=== PATIENT | male | born 1935 | race Caucasian/White ===

== ENCOUNTER 2020-03-06 12:51 | Inpatient (IN) | payer MEDICARE ==
[~2020-03-06] VITALS: Ht 172.7 cm; Wt 62.4 kg
[2020-03-06] MEDS ORDERED: NORV5TAB PO (13:12)
[2020-03-06] MEDS ORDERED: FLOM0.4C39 PO (13:12)
[2020-03-06] MEDS ORDERED: CLOP75TA2 PO (13:12)
[2020-03-06] MEDS ORDERED: TOPR50TA PO (13:12)
[2020-03-06] MEDS ORDERED: ASPI325T57 PO (13:12)
[2020-03-06 13:54] LABS: BASO % 0.3 % (0.0-1.0); EOS # 0.1 10^3/uL (0.0-0.5); HEMATOCRIT 42.5 % (42.0-52.0); HEMOGLOBIN 13.9 g/dl (13.5-17.5); LYMPH % 24.1 % (24.0-44.0); MEAN CORPUSCULAR HEMOGLOBIN 30.6 pg (27.0-33.0); MEAN CORPUSCULAR HGB CONC 32.7 g/dl (32.0-36.5); MEAN CORPUSCULAR VOLUME 93.6 fl (80.0-96.0); MONO # 0.5 10^3/uL (0.0-0.8); MONO % 13.3 % (0.0-5.0); NEUTROPHILS # 2.4 10^3/uL (1.5-8.5); NEUTROPHILS % 59.5 % (36.0-66.0); PLATELET COUNT, AUTOMATED 134 10^3/uL (150-450); RED BLOOD COUNT 4.54 10^6/uL (4.30-6.10)
[2020-03-06 13:57] LABS: INR 1.08; PROTHROMBIN TIME 13.7 SECONDS (11.8-14.0)
[2020-03-06 13:58] LABS: PARTIAL THROMBOPLASTIN TIME 33.4 SECONDS (25.0-38.4)
[2020-03-06 14:15] LABS: ALBUMIN 3.7 GM/DL (3.2-5.2); ALT/SGPT 22 U/L (12-78); BILIRUBIN,DIRECT < 0.1 MG/DL (0.0-0.2); BILIRUBIN,TOTAL 0.3 MG/DL (0.2-1.0); BLOOD UREA NITROGEN 16 MG/DL (7-18); CALCIUM LEVEL 8.4 MG/DL (8.8-10.2); CARBON DIOXIDE LEVEL 27 MEQ/L (21-32); CHLORIDE LEVEL 106 MEQ/L (98-107); CK-MB VALUE MASS < 1.0 NG/ML (<3.6); CPK CREATINE PHOSPHOKINASE 45 U/L (39-308); CREATININE FOR GFR 1.14 MG/DL (0.70-1.30); GLOMERULAR FILTRATION RATE > 60.0 (>35); GLUCOSE, FASTING 76 MG/DL (70-100); MB/CK RELATIVE INDEX 2.22 (< OR =4); POTASSIUM SERUM 4.1 MEQ/L (3.5-5.1); SODIUM LEVEL 140 MEQ/L (136-145); TOTAL PROTEIN 7.6 GM/DL (6.4-8.2); TROPONIN I < 0.02 NG/ML (< 0.10)
--- NOTE | 2020-03-06 15:06 | HPEPDOC ---
General Date of Admission 03/06/20 Date of Service: Mar 06, 2020 Chief Complaint The patient is a 85-year-old male admitted with a reason for visit of Weakness/ Slowed Speech. Source: Patient Exam Limitations: No limitations Timing/Duration: 24 hours Severity: Mild Associated Symptoms: Weakness History of Present Illness Patient is 85 years old male with past medical history of hypertension, coronary artery diseases, triple bypass in 2019, 3 cardiac stents in 2005, CVA around 10 years ago presented hospital with generalized weakness. According to his daughter, patient developed slurred speech yesterday evening and difficulties in articulation, symptoms lasted for couple of hours. In the morning slurred speech resolved, patient was not confused. Patient didn't have any focal de ficiency or changes in sensitivities. Patient didn't have any headache. In the morning patient developed generalized weakness, unusual for him. In ER CT head was done and it was negative for acute ischemic stroke or bleeding. NIH score 0. EKG did not show any acute ischemic changes. Also patient was found to have hypertensive urgency with systolic blood pressure around 230 Home Medications Scheduled Amlodipine Besylate (Norvasc) 5 Mg Tablet, 5 MG PO DAILY, (Reported) Aspirin (Aspirin) 325 Mg Tablet, 325 MG PO DAILY, (Reported) Clopidogrel Bisulfate (Clopidogrel) 75 Mg Tablet, 75 MG PO DAILY, (Reported) Metoprolol Succinate (Toprol Xl) 50 Mg Tab.er.24h, 50 MG PO DAILY, (Reported) Tamsulosin HCl (Flomax) 0.4 Mg Capsule, 0.4 MG PO DAILY, (Reported) Allergies Coded Allergies: No Known Allergies (Unverified , 03/06/20) Past Medical History Medical History Triple bypass in 2019, coronary artery diseases with 3 stents placement, CVA salomón und 10 years ago, hypertension, BPH Surgical History Triple heart bypass Family History I personally reviewed family history and found not pertinent Social History * Smoker: Denies Alcohol: occationally Drugs: denies A-FIB/CHADSVASC A-FIB History Current/History of A-Fib/PAF?: No Current PO Anticoag Therapy: No Review of Systems Constitutional: Reports: Weakness; Denies: Chills Eyes: Denies: Pain, Vision change ENT: Denies: Head Aches Skin: Denies: Rash Pulmonary: Denies: Dyspnea, Cough Cardiovascular: Denies: Chest Pain Gastrointestinal: Denies: Nausea, Vomiting Genitourinary: Reports: Dysuria, Frequency Hematologic: Denies: Bruising Endocrine: Denies: Polydipsia Musculoskeletal: Denies: Neck Pain, Back Pain Neurological: Reports: Change in speech (slurred speech in the yesterday evening) Psych: Reports: Mood Normal Physical Examination General Exam: Positive: Alert, Cooperative Eye Exam: Positive: PERRLA ENT Exam: Positive: Atraumatic Neck Exam: Positive: Supple; Negative: JVD Chest Exam: Positive: Clear to auscultation Heart Exam: Positive: Rate Normal Telemetry: Positive: No significant arrhythmia Abdomen Exam: Positive: Normal bowel sounds Extremity Exam: Negative: Clubbing Skin Exam: Positive: Nl turgor and temperature Neuro Exam: Positive: Strength at 5/5 X4 ext, Cranial Nerves 3-12 NL Psych Exam: Positive: Mental status NL Vital Signs Vital Signs Date Time Temp Pulse Resp B/P (MAP) Pulse Ox O2 Delivery O2 Flow Rate FiO2 03/06/20 14:36 59 16 99 Room Air 03/06/20 14:30 197/85 (122) 03/06/20 12:53 97.5 Laboratory Data Labs 24H Laboratory Tests 2 03/06/20 13:16: Immature Granulocyte % (Auto) 0.8, Neutrophils (%) (Auto) 59.5, Lymphocytes (%) (Auto) 24.1, Monocytes (%) (Auto) 13.3H, Eosinophils (%) (Auto) 2.0, Basophils (%) (Auto) 0.3, Neutrophils # (Auto) 2.4, Lymphocytes # (Auto) 1.0L, Monocytes # (Auto) 0.5, Eosinophils # (Auto) 0.1, Basophils # (Auto) 0.0, Nucleated Red Blood Cells % (auto) 0.0, Prothrombin Time 13.7, Prothromb Time International Ratio 1.08, Activated Partial Thromboplast Time 33.4, Anion Gap 7L, Glomerular Filtration Rate > 60.0, Calcium Level 8.4L, Total Bilirubin 0.3, Direct Bilirubin < 0.1, Aspartate Amino Transf (AST/SGOT) 22, Alanine Aminotransferase (ALT/SGPT) 22, Alkaline Phosphatase 103, Total Creatine Kinase 45, Creatine Kinase MB < 1.0, Creatine Kinase MB Relative Index 2.22, Troponin I < 0.02, Total Protein 7.6, Albumin 3.7, Albumin/Globulin Ratio 0.9, Thyroid Stimulating Hormone (TSH) 4.760H 03/06/20 13:21: Bedside Glucose (Misc Panel) 75L, POC Glucose (Misc Panel) 80, POC Sodium (Misc Panel) 139, POC Potassium (Misc Panel) 4.0, POC Chloride (Misc Panel) 103, POC Total CO2 (Misc Panel) 23.0, POC Blood Urea Nitrogen (Misc Panel 16, POC Ionized Calcium (Misc Panel) 4.2L, POC Creatinine (Misc Panel) 1.0, POC Hematocrit (Misc Panel) 41.0 03/06/20 13:23: POC Troponin I (Misc) 0.01 CBC/BMP Laboratory Tests 03/06/20 13:16 Assessment/Plan Patient is 85 years old male with past medical history of hypertension, coronary artery diseases, triple bypass in 2018, 3 cardiac stents in 2004, CVA around 10 years ago presented hospital with generalized weakness. According to his daughter, patient developed slurred speech yesterday evening and difficulties in articulation, symptoms lasted for couple of hours. In the morning slurred speech resolved, patient was not confused. Patient didn't have any focal deficiency or changes in sensitivities. Patient didn't have any headache. In the morning patient developed generalized weakness, unusual for him. In ER CT head was done and it was negative for acute ischemic stroke or bleeding. NIH score 0. EKG did not show any acute ischemic changes. Also patient was found to have hypertensive urgency with systolic blood pressure around 230 Problems (1) TIA (transient ischemic attack) Status: Acute Problem Text: Patient had previous stroke around 10 years ago Neurological exam is benign, NH score 0 CT head negative MRI, MRA ordered Echo PT/OT evaluation Continue statin, aspirin and Plavix (2) Coronary artery disease Problem Text: Continue home cardioprotective medication (3) General weakness Status: Acute Problem Text: Could be attributed to hypertensive urgency PT/OT evaluation (4) Hypertensive emergency Status: Acute Problem Text: Captopril with parameters Continue home cardioprotective medications Plan / VTE VTE Prophylaxis Ordered?: Yes GIO DAVISON DO Mar 06, 2020 15:06
[2020-03-06] MEDS ORDERED: CAPTOpril 6.25 MG PER 1/2 TABLET PO STA (15:07)
[2020-03-06] MEDS: CLOPIDOGREL 75 MG TAB PO SCH (15:27)
[2020-03-06] MEDS: ASPIRIN 325 MG TAB PO SCH (15:27)
[2020-03-06] MEDS: amLODIPine 5 MG TAB PO SCH ×2 (15:29→15:31)
[2020-03-06] MEDS: METOPROLOL SUCC (TopROL XL) 50MG **XL** TAB PO SCH (15:29)
[2020-03-06] MEDS: TAMSULOSIN 0.4 MG CAP PO SCH (15:31)
--- NOTE | 2020-03-06 16:11 | REP ---
REASON: Altered mental status. PRIORS: None. The technique utilized in obtaining the radiograph has magnified the cardiac silhouette and accentuated the interstitial markings. Bibasilar fibrotic changes are suspected left slightly greater than right. The pleural angles are sharp and the lung schmitt are otherwise clear. The heart is not enlarged. The osseous structures are within normal limits. Note is made of previous median sternotomy. IMPRESSION: No evidence of acute disease. Chronic changes suspected as described above. Electronically Signed by Modesto Newton DO 03/06/2020 04:15 P
[2020-03-06 16:25] VITALS: BP 188/82
[2020-03-06] MEDS: CAPTOpril 6.25 MG PER 1/2 TABLET PO SCH ×2 (16:42→17:15)
[2020-03-06] MEDS ORDERED: SLF 3 ML SYR IV PRN (16:45)
--- NOTE | 2020-03-06 16:51 | REP ---
CT BRAIN WITHOUT CONTRAST: CT brain performed without IV contrast. There are no prior studies for comparison. There is moderate atrophy. There is no midline shift or mass effect. There is a large cisterna magna. Chronic periventricular small vessel ischemic changes are seen bilaterally, more so on the right than on the left. There is no acute hemorrhage. There is no extra-axial fluid collection. There are vascular calcifications in the carotid siphons. IMPRESSION: Atrophy and chronic ischemic changes. No acute hemorrhage, midline shift, or mass effect. Electronically Signed by Anil Byrd MD 03/10/2020 09:08 A
[2020-03-06 20:00] VITALS: BP 133/63
[2020-03-06] MEDS: HEPARIN SOD (PORCINE) 5000UNITS/ML VIAL (J1644 PER 1000UNITS) SC SCH (20:19)
[2020-03-06] MEDS: SLF 3 ML SYR IV SCH (20:20)
--- NOTE | 2020-03-06 20:34 | REPVR ---
PROCEDURE INFORMATION: Exam: MR Head Without Contrast Exam date and time: 03/06/2020 5:00 PM Age: 85 years old Clinical indication: Speech disturbance; Slurred speech; Additional info: Stroke TECHNIQUE: Imaging protocol: MR of the head without contrast. COMPARISON: CT Head without contrast 03/06/2020 1:54 PM FINDINGS: Brain: Acute infarct in the left shaikh radiata measuring approximately 2 cm. Moderate to severe chronic microvascular ischemic changes. Ventricles: Normal. No ventriculomegaly. Bones/joints: Unremarkable. Sinuses: Normal as visualized. No acute sinusitis. Mastoid air cells: Right mastoid air cell effusion. Orbits: Bilateral cataract surgery. Soft tissues: Unremarkable. IMPRESSION: Acute infarct in the left shaikh radiata measuring approximately 2 cm. Electronically signed by: Isacc Rubio On 03/06/2020 20:33:40 PM
--- NOTE | 2020-03-06 20:42 | REPVR ---
PROCEDURE INFORMATION: Exam: MR Angiogram Head Without Contrast, Arteries Exam date and time: 03/06/2020 5:00 PM Age: 85 years old Clinical indication: Speech disturbance; Slurred speech; Additional info: Stroke TECHNIQUE: Imaging protocol: MR angiogram head without contrast. Exam focused on the arteries. 3D rendering: MIP and/or 3D reconstructed images were created by the technologist. COMPARISON: CT Head without contrast 03/06/2020 1:54 PM FINDINGS: Anterior cerebral arteries: Intracranial segment is patent with no significant stenosis. No aneurysm. Right internal carotid artery: Intracranial segment is patent with no significant stenosis. No aneurysm. Right middle cerebral artery: No occlusion or significant stenosis. No aneurysm. Right posterior cerebral artery: No occlusion or significant stenosis. No aneurysm. Right vertebral artery: No occlusion or significant stenosis. No aneurysm. Left internal carotid artery: Intracranial segment is patent with no significant stenosis. No aneurysm. Left middle cerebral artery: No occlusion or significant stenosis. No aneurysm. Left posterior cerebral artery: No occlusion or significant stenosis. No aneurysm. Left vertebral artery: No occlusion or significant stenosis. No aneurysm. Basilar artery: No occlusion or significant stenosis. No aneurysm. Other vasculature: origin of bilateral posterior cerebral arteries. IMPRESSION: No acute abnormality. Electronically signed by: Isacc Rubio On 03/06/2020 20:42:33 PM
--- NOTE | 2020-03-06 20:42 | ECGEPIP ---
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
[2020-03-06 22:00] VITALS: BP 176/79
[2020-03-06] MEDS ORDERED: hydrALAZINE 20MG/ML 1ML VIAL (J0360 PER 20MG) IV PRN (22:45)
[2020-03-06] MEDS ORDERED: lisinopriL 10 MG TAB PO ONE (22:45)
--- NOTE | 2020-03-06 23:12 | REPVR ---
PROCEDURE INFORMATION: Exam: US Duplex Bilateral Extracranial Arteries Exam date and time: 03/06/2020 9:54 PM Age: 85 years old Clinical indication: Other: CVA TECHNIQUE: Imaging protocol: Real-time Duplex ultrasound scan of the bilateral carotid and vertebral arteries combining dumont scale, color Doppler and spectral waveform analysis. Bilateral exam. COMPARISON: CT Head without contrast 03/06/2020 1:54 PM FINDINGS: Right common carotid artery: Rruy-cm-plcyunza plaque. No occlusion or stenosis. Waveforms are normal. Right internal carotid artery: Afkt-hx-zclkvqrz plaque. No occlusion or stenosis. Waveforms are normal. Right ICA/CCA ratio: With 0.7 Right external carotid artery: No stenosis in the origin. Right vertebral artery: Unremarkable. Antegrade flow. Left common carotid artery: Mild to moderate plaque. No occlusion or stenosis. Waveforms are normal. Left internal carotid artery: Mild to moderate plaque. No occlusion or stenosis. Waveforms are normal. Left ICA/CCA ratio: 1.06 Left external carotid artery: No stenosis in the origin. Left vertebral artery: Unremarkable. Antegrade flow. IMPRESSION: Mild stenosis(less than 50%) of bilateral internal carotid arteries as per NASCET criteria. REFERENCES: SRU CRITERIA. The degree of internal carotid artery stenosis is based on criteria defined by the Society of Radiologists in Ultrasound (SRU). Normal is no stenosis. Mild is less than 50% stenosis. Moderate is 50-69% stenosis. Severe is greater than 69% stenosis to near occlusion. Near occlusion is a markedly narrowed lumen. Total occlusion is no detectable patent lumen. Electronically signed by: Isacc Rubio On 03/06/2020 23:12:38 PM
[2020-03-07 04:00] VITALS: BP 138/67
[2020-03-07] MEDS: SLF 3 ML SYR IV SCH ×3 (05:00→20:17)
[2020-03-07] MEDS: **hydrALAZINE HCL** 25 MG TAB PO SCH ×3 (06:00→17:30)
[2020-03-07 06:17] LABS: HEMATOCRIT 38.1 % (42.0-52.0); HEMOGLOBIN 12.6 g/dl (13.5-17.5); MEAN CORPUSCULAR HEMOGLOBIN 30.3 pg (27.0-33.0); MEAN CORPUSCULAR HGB CONC 33.1 g/dl (32.0-36.5); MEAN CORPUSCULAR VOLUME 91.6 fl (80.0-96.0); PLATELET COUNT, AUTOMATED 127 10^3/uL (150-450); RED BLOOD COUNT 4.16 10^6/uL (4.30-6.10); WHITE BLOOD COUNT 3.6 10^3/uL (4.0-10.0)
[2020-03-07 06:39] LABS: BLOOD UREA NITROGEN 16 MG/DL (7-18); CALCIUM LEVEL 8.1 MG/DL (8.8-10.2); CARBON DIOXIDE LEVEL 25 MEQ/L (21-32); CHLORIDE LEVEL 108 MEQ/L (98-107); GLOMERULAR FILTRATION RATE > 60.0 (>35); GLUCOSE, FASTING 86 MG/DL (70-100); POTASSIUM SERUM 4.4 MEQ/L (3.5-5.1); SODIUM LEVEL 140 MEQ/L (136-145)
[2020-03-07 07:30] VITALS: BP 134/70
[2020-03-07] MEDS: METOPROLOL SUCC (TopROL XL) 50MG **XL** TAB PO SCH (08:40)
[2020-03-07] MEDS: amLODIPine 5 MG TAB PO SCH (08:41)
[2020-03-07] MEDS: ASPIRIN 325 MG TAB PO SCH (08:45)
[2020-03-07] MEDS: CLOPIDOGREL 75 MG TAB PO SCH (08:45)
[2020-03-07] MEDS: TAMSULOSIN 0.4 MG CAP PO SCH (08:45)
[2020-03-07] MEDS: HEPARIN SOD (PORCINE) 5000UNITS/ML VIAL (J1644 PER 1000UNITS) SC SCH ×2 (08:47→20:17)
[2020-03-07] MEDS ORDERED: lisinopriL 10 MG TAB PO SCH (09:00)
[2020-03-07 11:54] VITALS: BP 129/60
[2020-03-07 16:00] VITALS: BP 98/60
--- NOTE | 2020-03-07 18:03 | IPNPDOC ---
Text Note Date of Service The patient was seen on 03/07/20. NOTE Subjective: Does not have any complaints today. No weakness, no slurring of s peech, no swallowing problem. Physical Exam: Vitals: as below General Exam: Positive: Alert, Cooperative Eye Exam: Positive: PERRLA, ENT Exam: Positive: Atraumatic, moist mucous membranes , anicteric eyes. Neck Exam: Positive: Supple; Negative: JVD Chest Exam: Positive: Clear to auscultation Heart Exam: Positive: Rate Normal, regular heart sounds, no rub, murmur or gallop Telemetry: Positive: No significant arrhythmia Abdomen Exam: Positive: Normal bowel sounds, soft , nontender Extremity Exam: Negative: Clubbing, no cyanosis. Skin Exam: Positive: Nl turgor and temperature Neuro Exam: Positive: Strength at 5/5 X4 ext, Cranial Nerves 3-12 NL Psych Exam: Positive: Mental status NL Labs and Radiology Reviewed. Assessment and Plan: Patient is 85 years old male with past medical history of hypertension, coronary artery diseases, triple bypass in 2019, 3 cardiac stents in 2004, CVA around 10 years ago presented hospital with generalized weakness. According to his daughter, patient developed slurred speech yesterday evening and difficulties in articulation, symptoms lasted for couple of hours. Patient didn't have any focal deficiency or changes in sensitivities. Patient didn't have any headache. In the morning patient developed generalized weakness, unusual for him. In ER CT head was done and it was negative for acute ischemic stroke or bleeding. NIH score 0. EKG did not show any acute ischemic changes. Also patient was found to have hypertensive urgency with systolic blood pressure around 230. However MRI showed Acute infarct in the left shaikh radiata measur ing approximately 2 cm. Kristi was admitted for acute ischemic CVA Acute CVA left shaikh radiata infarct neurochecks q 6 hours, lipid panel, telemetry continue ASA, Plavix, Statin. Hypertensive urgency resolved will allow for permissive hypertension amlodipine and metoprolol with Hold parameters. Coronary artery disease S/P CABG and with 3 stents before continue asa, plavix. BPH flomax. VS,Fishbone, I+O VS, Fishbone, I+O Laboratory Tests 03/07/20 05:52 Vital Signs Date Time Temp Pulse Resp B/P (MAP) Pulse Ox O2 Delivery O2 Flow Rate FiO2 03/07/20 17:30 90/59 03/07/20 11:54 96.9 60 20 99 Room Air I&O- Last 24 Hours up to 6 AM 03/07/20 06:00 Intake Total 0 ml Output Total 100 ml Balance -100 ml CHARLES ALBARRAN MD Mar 07, 2020 18:03
[2020-03-07 20:00] VITALS: BP 165/76
[2020-03-07] MEDS ORDERED: ATORVASTATIN 20 MG TAB PO SCH (21:00)
[2020-03-08] VITALS: BP 143/72
[2020-03-08 04:00] VITALS: BP 166/98
[2020-03-08] MEDS: **hydrALAZINE HCL** 25 MG TAB PO SCH ×2 (05:27)
[2020-03-08] MEDS: SLF 3 ML SYR IV SCH (05:27)
[2020-03-08 05:44] LABS: EOS # 0.1 10^3/uL (0.0-0.5); EOS % 2.3 % (0.0-3.0); HEMATOCRIT 37.6 % (42.0-52.0); HEMOGLOBIN 12.4 g/dl (13.5-17.5); LYMPH # 0.7 10^3/uL (1.5-5.0); MEAN CORPUSCULAR HEMOGLOBIN 30.7 pg (27.0-33.0); MEAN CORPUSCULAR VOLUME 93.1 fl (80.0-96.0); MONO # 0.5 10^3/uL (0.0-0.8); MONO % 13.8 % (0.0-5.0); NEUTROPHILS # 2.2 10^3/uL (1.5-8.5); NEUTROPHILS % 64.3 % (36.0-66.0); PLATELET COUNT, AUTOMATED 124 10^3/uL (150-450); RED BLOOD COUNT 4.04 10^6/uL (4.30-6.10); WHITE BLOOD COUNT 3.5 10^3/uL (4.0-10.0)
[2020-03-08 06:03] LABS: BLOOD UREA NITROGEN 23 MG/DL (7-18); CALCIUM LEVEL 7.9 MG/DL (8.8-10.2); CARBON DIOXIDE LEVEL 26 MEQ/L (21-32); CHLORIDE LEVEL 110 MEQ/L (98-107); CHOLESTEROL LEVEL 152 MG/DL (<200); CHOLESTEROL RISK RATIO 5.629 (<5); CREATININE FOR GFR 1.07 MG/DL (0.70-1.30); GLOMERULAR FILTRATION RATE > 60.0 (>35); GLUCOSE, FASTING 93 MG/DL (70-100); HDL CHOLESTEROL 27 MG/DL (>40); LDL CHOLESTEROL 86 MG/DL (<100); NON-HDL-C 125 MG/DL; POTASSIUM SERUM 3.9 MEQ/L (3.5-5.1); SODIUM LEVEL 142 MEQ/L (136-145); TRIGLYCERIDES LEVEL 193 MG/DL (<150)
[2020-03-08 08:00] VITALS: BP 174/77
[2020-03-08] MEDS: TAMSULOSIN 0.4 MG CAP PO SCH (08:37)
[2020-03-08] MEDS: ASPIRIN 325 MG TAB PO SCH (08:37)
[2020-03-08 08:38] VITALS: BP 162/70
[2020-03-08] MEDS: METOPROLOL SUCC (TopROL XL) 50MG **XL** TAB PO SCH (08:38)
[2020-03-08] MEDS: CLOPIDOGREL 75 MG TAB PO SCH (08:38)
[2020-03-08] MEDS: amLODIPine 5 MG TAB PO SCH (08:38)
[2020-03-08] MEDS: HEPARIN SOD (PORCINE) 5000UNITS/ML VIAL (J1644 PER 1000UNITS) SC SCH (08:39)
[2020-03-08] MEDS ORDERED: ATOR1TAB21 PO (09:53)
--- NOTE | 2020-03-08 10:57 | DS.PDOC ---
Discharge Summary General Date of Admission Mar 06, 2020 at 14:48 Date of Discharge 03/08/20 Discharge Summary PROCEDURES PERFORMED DURING STAY: [None]. DISCHARGE DIAGNOSES: Acute Ischemic CVA. Hypertensive urgency SECONDARY DIAGNOSIS: Hypertension, coronary artery diseases s/p stents in 2004 s/p triple bypass in 2018, CVA around 10 years ago, BPH. COMPLICATIONS/CHIEF COMPLAINT: General Weakness,TIA. HOSPITAL COURSE: Patient is 85 years old male with past medical history of hypertension, coronary artery diseases, triple bypass in 2018, 3 cardiac stents in 2004, CVA around 10 years ago presented hospital with generalized weakness. According to his daughter, patient developed slurred speech yesterday evening and difficulties in articulation, symptoms lasted for couple of hours. Patient didn't have any focal deficiency or changes in sensitivities. Patient didn't have any headache. In the morning patient developed generalized weakness, unusual for him. In ER CT head was done and it was negative for acute ischemic stroke or bleeding. NIH score 0. EKG did not show any acute ischemic changes. Also patient was found to have hypertensive urgency with systolic blood pressure around 230. However MRI showed Acute infarct in the left shaikh radiata measuring approximately 2 cm. Patient was admitted for acute ischemic CVA Acute CVA left shaikh radiata infarct continue ASA, Plavix, Statin started Hypertensive urgency resolved will continue home medications. Coronary artery disease S/P CABG and with 3 stents before continue asa, plavix. BPH flomax. DISCHARGE MEDICATIONS: Please see below. ALLERGIES: Please see below. PHYSICAL EXAMINATION ON DISCHARGE: VITAL SIGNS: Please see below. General Exam: Positive: Alert, Cooperative Eye Exam: Positive: PERRLA, ENT Exam: Positive: Atraumatic, moist mucous membranes , anicteric eyes. Neck Exam: Positive: Supple; Negative: JVD Chest Exam: Positive: Clear to auscultation Heart Exam: Positive: Rate Normal, regular heart sounds, no rub, murmur or gallop Telemetry: Positive: No significant arrhythmia Abdomen Exam: Positive: Normal bowel sounds, soft , nontender Extremity Exam: Negative: Clubbing, no cyanosis. Skin Exam: Positive: Nl turgor and temperature Neuro Exam: Positive: Strength at 5/5 X4 ext, Cranial Nerves 3-12 NL Psych Exam: Positive: Mental status NL LABORATORY DATA: Please see below. IMAGING: MRI brain: Brain: Acute infarct in the left shaikh radiata measuring approximately 2 cm. Moderate to severe chronic microvascular ischemic changes. Ventricles: Normal. No ventriculomegaly. Bones/joints: Unremarkable. Sinuses: Normal as visualized. No acute sinusitis. Mastoid air cells: Right mastoid air cell effusion. Orbits: Bilateral cataract surgery. Soft tissues: Unremarkable. IMPRESSION: Acute infarct in the left shaikh radiata measuring approximately 2 cm. MRA brain: Anterior cerebral arteries: Intracranial segment is patent with no significant stenosis. No aneurysm. Right internal carotid artery: Intracranial segment is patent with no significant stenosis. No aneurysm. Right middle cerebral artery: No occlusion or significant stenosis. No aneurysm. Right posterior cerebral artery: No occlusion or significant stenosis. No aneurysm. Right vertebral artery: No occlusion or significant stenosis. No aneurysm. Left internal carotid artery: Intracranial segment is patent with no significant stenosis. No aneurysm. Left middle cerebral artery: No occlusion or significant stenosis. No aneurysm. Left posterior cerebral artery: No occlusion or significant stenosis. No aneurysm. Left vertebral artery: No occlusion or significant stenosis. No aneurysm. Basilar artery: No occlusion or significant stenosis. No aneurysm. Other vasculature: origin of bilateral posterior cerebral arteries. IMPRESSION: No acute abnormality. Carotid Doppler: FINDINGS: Right common carotid artery: Eypv-ju-duprdmou plaque. No occlusion or stenosis. Waveforms are normal. Right internal carotid artery: Gwkm-um-gyxeacvg plaque. No occlusion or stenosis. Waveforms are normal. Right ICA/CCA ratio: With 0.7 Right external carotid artery: No stenosis in the origin. Right vertebral artery: Unremarkable. Antegrade flow. Left common carotid artery: Mild to moderate plaque. No occlusion or stenosis. Waveforms are normal. Left internal carotid artery: Mild to moderate plaque. No occlusion or stenosis. Waveforms are normal. Left ICA/CCA ratio: 1.06 Left external carotid artery: No stenosis in the origin. Left vertebral artery: Unremarkable. Antegrade flow. IMPRESSION: Mild stenosis(less than 50%) of bilateral internal carotid arteries as per NASCET criteria. ACTIVITY: [As tolerated]. DIET: As tolerated DISCHARGE PLAN: Home DISCHARGE INSTRUCTIONS: Follow up with PMD in 2 to 4 weeks DISCHARGE CONDITION: [Stable]. TIME SPENT ON DISCHARGE: 35 minutes. Vital Signs/I&Os Vital Signs Date Time Temp Pulse Resp B/P (MAP) Pulse Ox O2 Delivery O2 Flow Rate FiO2 03/08/20 08:38 64 162/70 03/08/20 08:00 97.0 16 96 Room Air I&O- Last 24 Hours up to 6 AM 03/08/20 06:00 Intake Total 480 ml Output Total 275 ml Balance 205 ml Laboratory Data Labs 24H Laboratory Tests 2 03/08/20 05:18: Immature Granulocyte % (Auto) 0.6, Neutrophils (%) (Auto) 64.3, Lymphocytes (%) (Auto) 19.0L, Monocytes (%) (Auto) 13.8H, Eosinophils (%) (Auto) 2.3, Basophils (%) (Auto) 0.0, Neutrophils # (Auto) 2.2, Lymphocytes # (Auto) 0.7L, Monocytes # (Auto) 0.5, Eosinophils # (Auto) 0.1, Basophils # (Auto) 0.0, Nucleated Red Blood Cells % (auto) 0.0, Anion Gap 6L, Glomerular Filtration Rate > 60.0, Calcium Level 7.9L, Triglycerides Level 193H, Total Cholesterol 152, LDL Cholesterol 86, Non-HDL Cholesterol (LDL + VLDL) 125, Total HDL Cholesterol 27L, Cholesterol/HDL Ratio 5.629H CBC/BMP Laboratory Tests 03/08/20 05:18 Discharge Medications Scheduled Amlodipine Besylate (Norvasc) 5 Mg Tablet, 5 MG PO DAILY, (Reported) Aspirin (Aspirin) 325 Mg Tablet, 325 MG PO DAILY, (Reported) Atorvastatin Calcium (Atorvastatin Calcium) 20 Mg Tablet, 40 MG PO QHS Clopidogrel Bisulfate (Clopidogrel) 75 Mg Tablet, 75 MG PO DAILY, (Reported) Metoprolol Succinate (Toprol Xl) 50 Mg Tab.er.24h, 50 MG PO DAILY, (Reported) Tamsulosin HCl (Flomax) 0.4 Mg Capsule, 0.4 MG PO DAILY, (Reported) Allergies Coded Allergies: No Known Allergies (Unverified , 03/06/20) CHARLES ALBARRAN MD Mar 08, 2020 10:57
--- NOTE | 2020-03-09 07:10 | ECHO ---
DATE OF STUDY: 03/07/2020 DATE OF : 1935 AGE: 85 REFERRING PROVIDER: Dr. Ronny Lopez PATIENT LOCATION: Room 3227 REASON FOR STUDY: CVA. 2-D MEASUREMENTS: IVS: 1.3 cm LV: 3.5 cm LVPW: 1.3 cm LA: 3.4 cm Aorta: 3.2 cm IVC: 1.15 cm DOPPLER MEASUREMENTS: Peak velocity across the aortic valve: 1.8 m/s Peak velocity across the LVOT: 0.58 m/s Peak gradient across the aortic valve: 13 mmHg Mean gradient across the aortic valve: 8 mmHg Mitral E: 0.57 Mitral A: 0.68 Ratio: 0.8 Maximum tricuspid valve velocity: 1.9 m/s 2-D COMMENTS: 1. Technically limited study due to poor acoustic window. 2. Normal left ventricular size with mildly increased left ventricular wall thickness. Left ventricular systolic function is normal, estimated at 55-60%. 3. Normal left atrium. Normal right atrium and right ventricle. At one point during the test, the right heart chambers were opacified with what seems to be bubbles. Probably a bubble study was done, but there was no evidence of intracardiac shunt. 4. The atrial septum appeared to be normal and as mentioned above no evidence of shunt by Doppler. 5. Normal aortic root. 6. No pericardial effusion seen. 7. Mildly calcified aortic valve with minimally restricted leaflet motion. Mildly calcified mitral annulus with normal anterior mitral valve leaflet motion. Normal tricuspid valve. The pulmonic valve and proximal pulmonary artery branches were not well visualized. 8. The inferior vena cava was normal in size, central venous pressure is most likely normal. DOPPLER: Only trace tricuspid regurgitation detected. The calculated pulmonary artery systolic pressure was normal. Abnormal relaxation pattern was noted across the mitral valve leaflets as well as the mitral valve annulus consistent with features of grade 1 left ventricular diastolic dysfunction. IMPRESSION: 1. Normal global left ventricular systolic function. There are some features of left ventricular diastolic dysfunction manifested by abnormal relaxation. 2. Aortic valve sclerosis with trivial aortic stenosis, but no aortic regurgitation. 3. Isolated mitral annulus calcification. 4. Trace mitral regurgitation with a normal calculated pulmonary artery systolic pressure.
== END 2020-03-08 11:39 | disposition home or self-care (01) | DRG 66 ==
LOC: M ED 12:51 → M ED INP 14:48 → ENRESERV 15:03 → M PCU 16:21
PROVIDERS: ADMIT Internal Medicine; ATTEND Internal Medicine Nephrology
DX: I63.59 Cerebral infarction due to unspecified occlusion or stenosis of other cerebral artery (principal); I25.10 Atherosclerotic heart disease of native coronary artery without angina pectoris; R53.1 Weakness; I10 Essential (primary) hypertension; I16.0 Hypertensive urgency; N40.0 Benign prostatic hyperplasia without lower urinary tract symptoms; Z79.82 Long term (current) use of aspirin; Z79.02 Long term (current) use of antithrombotics/antiplatelets; Z79.899 Other long term (current) drug therapy; Z95.5 Presence of coronary angioplasty implant and graft